=== PATIENT | female | born 1940 | race Two or more races ===

== ENCOUNTER 2019-10-27 11:16 | Inpatient (IN) | payer OTHER ==
[~2019-10-27] VITALS: Ht 152.4 cm; Wt 74.4 kg
[2019-10-27] MEDS ORDERED: LOSARTAN-HCTZ1 EAC2 PO (11:36)
[2019-10-27] MEDS ORDERED: TOPROL XL50 M1 PO (13:09)
[2019-10-27] MEDS ORDERED: TAPAZOLE10 MG PO (13:09)
[2019-10-27] MEDS ORDERED: HYDRODIURIL12.5 MG PO (13:11)
[2019-10-27] MEDS ORDERED: CLONAZEPAM0.5 MG PO (13:12)
== END 2019-11-04 01:52 | disposition expired ==
LOC: ER 11:16 → ICU-2 10-28 17:41 → ICU 11-01 13:27
PROVIDERS: ADMIT Internal Medicine; ATTEND Internal Medicine
PROC: 0W9930Z Drainage of Right Pleural Cavity with Drainage Device, Percutaneous Approach (ICD-10-PCS; principal; 2019-10-30)
PROC: 0BH17EZ Insertion of Endotracheal Airway into Trachea, Via Natural or Artificial Opening (ICD-10-PCS; 2019-10-30)
PROC: 5A1935Z Respiratory Ventilation, Less than 24 Consecutive Hours (ICD-10-PCS; 2019-10-30)
PROC: 4A033R1 Measurement of Arterial Saturation, Peripheral, Percutaneous Approach (ICD-10-PCS; 2019-10-30)
PROC: 02HV33Z Insertion of Infusion Device into Superior Vena Cava, Percutaneous Approach (ICD-10-PCS; 2019-10-31)
DX: I48.91 Unspecified atrial fibrillation (principal); I21.4 Non-ST elevation (NSTEMI) myocardial infarction; J18.9 Pneumonia, unspecified organism; J98.11 Atelectasis; J90 Pleural effusion, not elsewhere classified; N17.9 Acute kidney failure, unspecified; I11.0 Hypertensive heart disease with heart failure; I47.2 Ventricular tachycardia; I50.9 Heart failure, unspecified; R57.0 Cardiogenic shock; E05.90 Thyrotoxicosis, unspecified without thyrotoxic crisis or storm